=== PATIENT | male | born 1980 | race Two or more races ===

== ENCOUNTER → 2017-12-27 | Outpatient (CLI) | payer OTHER ==
[~2017-12-27] MED LIST: ACIDOPHILUS1 EAC2 PO; AMOX1TAB12 PO; FLONASE16 GM NS; INTESTINEX680 MG PO; PROPRANOLOL HCL60 M1; PROPRANOLOL HCL60 M1 PO; RELAGESIC 5001 EACH PO; TESSALON200 MG PO
== END | disposition home or self-care (01) ==
LOC: PPHC 15:12
DX: Z00.00 Encounter for general adult medical examination without abnormal findings (principal)

== ENCOUNTER 2018-09-26 23:12 | Emergency (ER) | payer OTHER ==
[~2018-09-26] VITALS: Ht 170.2 cm; Wt 93.4 kg
[2018-09-26] MEDS ORDERED: INDERAL XL80 MG (23:40)
[2018-09-27] MEDS ORDERED: SKELAXIN800 MG PO (04:42)
== END 2018-09-27 04:50 ==
LOC: ER 23:12
DX: S83.8X2A Sprain of other specified parts of left knee, initial encounter (principal); W10.8XXA Fall (on) (from) other stairs and steps, initial encounter; Y93.89 Activity, other specified; Y92.89 Other specified places as the place of occurrence of the external cause; Y99.8 Other external cause status; K76.0 Fatty (change of) liver, not elsewhere classified